=== PATIENT | male | born 1965 | race Hispanic/Latino ===

== ENCOUNTER 2024-04-12 17:12 | Emergency (ER) | payer BC ==
[2024-04-12] MEDS ORDERED: Acetaminophen 500 MG TAB ONE (17:50)
[2024-04-12] MEDS ORDERED: Lidocaine 4% Patch ONE (17:51)
[2024-04-12] MEDS ORDERED: Cyclobenzaprine 10 MG TAB ONE (17:51)
[2024-04-12] MEDS ORDERED: Morphine 10 MG/ML VIAL ONE (17:51)
[2024-04-12] MEDS ORDERED: Ketorolac Tromethamine 30 MG (1 mL) VIAL ONE (17:51)
== END 2024-04-12 18:59 | disposition home or self-care (01) ==
LOC: ERS 17:12
DX: M54.2 Cervicalgia (principal); R03.0 Elevated blood-pressure reading, without diagnosis of hypertension
CPT/HCPCS: 96372; 99282; J1885; J2270

== ENCOUNTER 2024-04-13 06:07 | Emergency (ER) | payer BC ==
[2024-04-13] MEDS ORDERED: Ketorolac Tromethamine 30 MG (1 mL) VIAL ONE (06:44)
[2024-04-13] MEDS ORDERED: Diazepam 5 MG TAB ONE (06:44)
[2024-04-13] MEDS ORDERED: Dexamethasone 4 MG TAB ONE (06:44)
== END 2024-04-13 07:57 | disposition home or self-care (01) ==
LOC: ERS 06:07
DX: M54.2 Cervicalgia (principal)
CPT/HCPCS: 96372; 99282; J1885; J8540